=== PATIENT | female | born 1985 | race Caucasian/White ===

== ENCOUNTER → 2025-07-02 13:16 | Outpatient (REF) | payer OTHER, SELFPAY | LOC: RAD 13:16 | PROVIDERS: ATTENDING PHYSICIAN Internal Medicine; FAMILY PHYSICIAN Internal Medicine | DX: R04.2 Hemoptysis (principal); M54.2 Cervicalgia; M25.512 Pain in left shoulder | CPT/HCPCS: 71046; 72050; 73030 ==